=== PATIENT | male | born 1970 | race Caucasian/White ===

== ENCOUNTER 2020-02-25 11:26 | Emergency (ER) | payer BC, OTHER ==
[2020-02-25 12:49] LABS: HEMOGLOBIN 16.4 gm/dl (14.0-17.5); RED BLOOD COUNT 5.48 M/UL (4.20-5.50); WHITE BLOOD COUNT 13.3 K/UL (4.5-11.0)
[2020-02-25 13:03] LABS: BUN/CREATININE RATIO 19 (0-10)
[2020-02-25] MEDS ORDERED: HYDROCODON-ACE1 EAC4 PO (16:15)
== END 2020-02-25 16:30 | disposition home or self-care (01) ==
LOC: ER1 11:26
PROVIDERS: Emergency Medicine
DX: N13.2 Hydronephrosis with renal and ureteral calculous obstruction (principal); Z87.442 Personal history of urinary calculi
CPT/HCPCS: 80053; 81001; 83690; 85025; 96374; 96375; 96376; 99284; J2270; J2405